=== PATIENT | female | born 2000 | race Caucasian/White ===

== ENCOUNTER 2023-12-05 22:57 | Emergency (ER) | payer MEDICAID ==
[~2023-12-05] VITALS: Ht 170.2 cm; Wt 59.0 kg
[2023-12-05 23:18] VITALS: BP 112/65; TEMP 97.8; O2SAT 99
[2023-12-05] MEDS ORDERED: IBUPROFEN 400 MG TABLET ONE (23:24)
[2023-12-05] MEDS: IBUPROFEN 400 MG TABLET PO ONE (23:29)
== END 2023-12-05 23:30 | disposition home or self-care (01) ==
LOC: ER 23:05
DX: S33.5XXA Sprain of ligaments of lumbar spine, initial encounter (principal); V43.62XA Car passenger injured in collision with other type car in traffic accident, initial encounter; Y93.89 Activity, other specified; Y92.488 Other paved roadways as the place of occurrence of the external cause; Y99.8 Other external cause status